=== PATIENT | female | born 1980 | race Caucasian/White ===

== ENCOUNTER → 2016-11-19 | Outpatient (CLI) | payer OTHER ==
--- NOTE | 2016-11-19 14:02 | REP ---
DIGITAL DIAGNOSTIC BILATERAL MAMMOGRAPHY WITH CAD AND FOCUSED LEFT BREAST SONOGRAPHY: HISTORY: Intermittent left breast pain. Clinician reports a pea-sized lump in the left breast on clinical breast exam. The patient cannot feel this. The patient reports that this was discovered in the superior aspect of her left breast. MAMMOGRAPHIC FINDINGS: No comparison mammography. CC, true ML, and left breast true ML views are obtained. Breast parenchyma is heterogeneously dense in a pattern which may inhibit the sensitivity of mammography. No mass lesion or nodule is seen on either side. No spiculation or microcalcification is observed. No worrisome skin change is seen. SONOGRAPHIC FINDINGS: The left breast is scanned superiorly from the 9-o'clock position to the 3-o'clock position. Heterogeneous fibroglandular background echotexture is seen. There is a oval-shaped 0.8 cm hypoechoic nodule seen with enhanced through transmission. No internal Doppler flow. This is most compatible with lymph node or cyst. No other sonographic finding is seen. IMPRESSION: BIRADS category 2 benign bilateral breast imaging. This negative report should not dissuade one from biopsy of a palpable lump depending on its clinical characteristics. Clinical follow-up is advised. BI-RADS/ACR category 2 mammogram. Benign finding(s). Routine annual screening mammography (for women over age 40). This mammogram was interpreted with the aid of an FDA-approved computer-aided detection system. The patient states she/he had a clinical breast exam in October 2016 The patient letter being requested is [employer]. Signed by Refugio Giang MD 11/19/2016 08:57 P
== END ==
LOC: M RAD 10:00
PROVIDERS: ATTEND Family Medicine
DX: N64.4 Mastodynia (principal); N63 Unspecified lump in breast
CPT/HCPCS: 76642; G0204